=== PATIENT | male | born 1940 | race Hispanic/Latino ===

== ENCOUNTER 2023-09-03 17:50 | Emergency (ER) | payer OTHER ==
--- OUTSIDE RECORDS SUMMARY | 2023-09-03 17:53 | XMS REPORT | Clinical Summary ---
:1940 Author Organization [facility] MD [facility] Center Address [address] [place] [address] Care Team Providers Name Role Phone Royce Amaya MD Primary Care Provider Allergies No known active allergies Medications Medication Sig Dispensed Refills Start Date End Date Status losartan (COZAAR) 100 0 07/15/2019 Active mg tablet metoprolol tartrate 0 07/05/2019 Active (LOPRESSOR) 50 mg tablet olopatadine (PATADAY) 0 09/01/2019 Active 0.2% drop ophthalmic solution pravastatin 0 07/07/2019 Active (PRAVACHOL) 40 mg tablet omega-3 fatty Take 2 capsules 0 Active acids/fish oil (FISH (2 g) by mouth. OIL-OMEGA-3 FATTY ACIDS) 300-1,000 mg capsule cyanocobalamin Take 1 tablet 0 A ctive (VITAMIN B-12) 1000 (1,000 mcg) by mcg tablet mouth. calcium Take by mouth 2 0 Acti ve carbonate-vitamin D3 (two) times a 500 mg - 200 units day with meals. (1,250 mg calcium carbonate) tablet ascorbate Take 1 tablet by 0 Act bryan calcium-bioflavonoid mouth daily. (Rosario-C with Bioflavonoids) 1,000-200 mg tab tamsulosin (FLOMAX) TAKE ONE CAPSULE 180 capsule 3 12/03/2020 Active 0.4 mg 24 hr BY MOUTH TWICE A capsuleIndications: DAY Adenocarcinoma of prostate Additional Information Patient taking differently: 0.4 mg Nightly, Reason: Other, Informant: Self, Reported on 09/24/2022 hydrALAZINE (APRESOLINE) Take 1 tablet 0 Active 25 mg tablet (25 mg) by mouth 3 (three) times a day. dapagliflozin (Farxiga) Take 1 tablet by 0 Active 5 mg tab mouth daily. famotidine (PEPCID) 20 Take 1 tablet 0 Active mg tablet (20 mg) by mouth daily. tadalafil (CIALIS) 20 mg Take 1 tablet 30 tablet 3 Active tabletIndications: (20 mg) by mouth 022 Adenocarcinoma of daily as needed prostate for erectile dysfunction. fenofibrate 0 Disconti nued (Other nanocrystallized 019 022 ) (TRICOR) 145 mg tablet omeprazole (PriLOSEC) 40 0 09/24 Discontinued (OTC MG capsule 019 022 medicatio n) tadalafil (CIALIS) 20 mg Take 1 tablet 30 tablet 3 1 Discontinued tabletIndications: (20 mg) by mouth 021 022 (Reorder) Adenocarcinoma of daily as needed prostate for erectile dysfunction. amLODIPine-olmesartan TAKE ONE (1) 0 2 09/24 Discontinued (Other (SAMI) 5-40 mg per TABLET(S) BY 022 022 ) tablet MOUTH EVERY MORNING. 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 Staging: Clinical: Stage IIB (cT1 c, cN0, cM0, PSA: 13.2, Grade Group: 2) - Unsigned Encounters Date Type Department Care Team Description 03/25/2023 Telemedicine MD Kramer in [facility] [place] arcinoma of 11:15 AM CDT [facility] Radiation prostate (P rimary Dx) Oncology [address] [place] [id number] 09/24/2022 Telemedicine MD Kramer in [facility] [place] arcinoma of 9:30 AM OUTSIDE SALES ACCOUNT EXECUTIVE [facility] Radiation prostate Oncology [address] [place] [id number] after 09/03/2022 Immunizations Name Administration Dates Next Due Pfizer SARS-CoV-2 Vaccination (Purple 07/05/2021, 1, 11/10/2020 Cap) Medical History Medical History Date Comments Cancer Gastroesophageal reflux disease Hypertension Social History Tobacco Use Types Packs/Day Years Used Date Smoking Tobacco: Former Smokeless Tobacco: Never Sex and Gender Information Value Date Recorded Sex Assigned at Male 04/10/2020 9:21 AM CDT Gender Identity Male 04/10/2020 9:21 AM C DT Sexual Orientation Straight 04/10/2020 9:21 AM C DT Job Start Date Occupation Industry Not on file Not on file Not on file Obstetrics History Last Filed Vital Signs Not on file Plan of Treatment Date Type Department Care Team Description 09/21/2023 9:00 Lab MD [facility] [place] Kunal Amaya MD AM OUTSIDE SALES ACCOUNT EXECUTIVE - Diagnostic Laboratory [address] [place] [address] [address] [phone] (W ork) [place] [place] [address] 09/23/2023 1:00 [facility] OUTSIDE SALES ACCOUNT EXECUTIVE [facility] - Radiation [address] [place] [address] [address] [facility] [phone] (W ork) [address] [place] [address] Health Maintenance Due Date Last Done Comments COVID-19 Vaccination (06/18/2023 07/05/2021, , season) 11/10/2020 Results Not on fileafter 09/03/2022 Insurance Payer Benefit Plan / Subscriber ID Effective Phone Address T ype Group Dates UNITED UHC MEDICARE [id number] 2020-Prese [address] Medicare HEALTHCARE ADVANTAGE nt [place] [id number] Care Teams Vice Provost Relationship Specialty Start Date End Date Royce Amaya MD PCP - General Radiation Oncology 10/16/19 [address] [place] [address]
--- OUTSIDE RECORDS SUMMARY | 2023-09-03 17:53 | XMS REPORT | Continuity of Care Document ---
:1940 Author Organization [facility] t Address [address] [facility] [address] [place] [address] Care Team Providers Name Role Phone [phone] Primary Care Physician Unavailable SYSTEM, PROVIDER NOT IN Attending Clinician Unavailable CODIE BOX Attending Clinician Unavailable Codie Box MD Attending Clinician Payers Payer Name Policy Type Policy Number Effective Date Expiration Date S ource [employer] CHOICE [id number] 2018 MEDICARE PPO 00:00:00 Problems Condition Condition Condition Status Onset Resolution Last Treating Co mments Source Name Details Category Date Date Treatment Clinician Date Adenocarci Adenocarci Disease Active 2018-10 U nivers noma of noma of 1-04 ity of prostate prostate 00:00: [place] 00 MD [facility] Allergies, Adverse Reactions, Alerts This patient has no known allergies or adverse reactions. Social History Social Habit Start Date Stop Date Quantity Comments Source Sexual orientation 2020-04-10 Heterosexual Univ ersity of 09:21:36 (finding) [place] MD Williams Ruiz [facility] [place] History of tobacco Current smoker Un iversity of use [place] MD Williams Ruiz [facility] History of Social 2020-12-28 2020-12-28 Univers ity of function 00:00:00 00:00:00 [place] Williams [facility]le [place] Tobacco use and 2019-10-31 2019-10-31 Smokeless tobacco Un iversity of exposure 00:00:00 00:00:00 non-user [place] Williams [facility]le [place] Sex Ass[birth year] At [birth year] M Universit y of 00:00:00 00:00:00 [place] Williams [facility] [place] Smoking Status Start Date Stop Date Source Ex-smoker 2019-10-31 00:00:00 2019-10-31 00:00:00 Universi ty of [facility] Medications Ordered Filled Start Stop Current Ordering Indication Dosage Frequency Signature Comments Components Source Medication Medication Date Date Medication? Clinician (SIG) Name Name omega-3 Yes 2g Take 2 Univers fatty 6-08 capsules ity of acids/fish 09:47: (2 g) by Sudeep as oil (FISH 09 mouth. OIL-OMEGA-3 Andbrendan FATTY n ACIDS) Cancer 300-1,000 Center mg capsule cyanocobala Yes 1000ug Take 1 Un bubba min 6-08 tablet ity of (VITAMIN 09:47: (1,000 [place] B-12) 1000 09 mcg) by mcg tablet mouth. Natty [facility] calcium Yes Take by Univers carbonate-v 6-08 mouth 2 ity o f itamin D3 09:47: (two) [place] 500 mg - 09 times a MD 200 units day with Yobany o (1,250 mg meals. n calcium Cancer carbonate) Center tablet ascorbate Yes 1{tbl} Take 1 Univ ers calcium-bio 6-08 tablet by ity of flavonoid 09:47: mouth [place] (Rosario-C 09 daily. with Natty Bioflavonoi gabi ds) Cancer 1,000-200 Center mg tab hydrALAZINE Yes 25mg Take 1 Univ ers (APRESOLINE 6-08 tablet (25 it y of ) 25 mg 09:47: mg) by Renetta tablet 09 mouth 3 MD (three) Yobanyo times a n day. Cancer Center dapaglifloz Yes 1{tbl} Take 1 Un bubba in 6-08 tablet by ity of (Farxiga) 5 09:47: mouth [place] mg tab 09 daily. MD Natty [facility] [place] famotidine Yes 20mg Take 1 Unive rs (PEPCID) 20 6-08 tablet (20 it y of mg tablet 09:47: mg) by [place] 09 mouth daily. Natty [facility] tadalafil 2021-10 Yes Adenocarcin 20mg Take 1 Univers (CIALIS) 20 2-08 pedro of tablet (20 ity of mg tablet 00:00: prostate mg[place] 00 mouth daily as Anderso needed for n erectile Cancer dysfunctio Center n. amLODIPine- 2021- No TAKE ONE U nivers olmesartan 5-22 12-08 (1) ity of (SAMI) 5-40 00:00: 00:00 TABLET(S) [place] mg per 00 :00 BY MOUTH tablet EVERY Anderso MORNING. n Cancer Center tadalafil 2020-10- No Adenocarcin 20mg Take 1 Univers (CIALIS) 20 2-09 12-08 pedro of tablet (20 ity of mg tablet 00:00: 00:00 prostate mg) by [place] 00 :00 mouth MD daily as Anderso needed for n erectile Cancer dysfunctio [place] n. tamsulosin Yes Adenocarcin TAKE ONE Univers (FLOMAX) 2-16 pedro of CAPSULE BY ity of 0.4 mg 24 00:00: prostate MOUTH Sudeep as hr capsule 00 TWICE A MD DAY [facility] olopatadine 2018-10 Yes Univer s (PATADAY) 1-15 ity of 0.2% drop 00:00: [place] ophthalmic 00 solution [facility] omeprazole 2018-10- Univer s (PriLOSEC) 1-15 12-08 ity of 40 MG 00:00: 00:00 [place] capsule 00 :00 MD Luz [facility] losartan Yes Univers (COZAAR) 9-28 ity of 100 mg 00:00: [place] tablet [address] [facility] fenofibrate 2021- Unive rs nanocrystal 9 12-08 ity of lized 00:00: 00:00 [place] (TRICOR) 00 :00 145 mg Andbrendan tablet [facility] pravastatin Yes Univer s (PRAVACHOL) 9-20 ity of 40 mg 00:00: [place] tablet 00 [facility] Yes Univers tartrate 9-18 ity of (LOPRESSOR) 00:00: [place] 50 mg 00 tablet [facility] Immunizations Ordered Immunization Filled Immunization Date Status Commen ts Source Name Name Pfizer SARS-CoV-2 Unknown Completed Univer sity of Vaccination ([facility] Pfizer SARS-CoV-2 Unknown Completed Univer sity of Vaccination ([facility]) Cancer Center Pfizer SARS-CoV-2 Unknown Completed Univer sity of Vaccination ([facility]) Cancer [place] Procedures This patient has no known procedures. Plan of Care Planned Activity Planned Date Details Comments Source Future Scheduled 2023-08-07 COVID-19 Vaccination Uni [facility] Test 06:45:47 () MD Cholo rodriguez Cancer [code = COVID-19 Center Vaccination ()] Encounters Start End Encounter Admission Attending Care Care Encounter Source Date/Time Date/Time Type Type Clinicians Facility Department ID 2023-03-23 Outpatient SYSTEM, JOHN PAUL COKER [id number] 23:55:15 PROVIDER Yobany o gabi 2022-09-24 Outpatient SYSTEM, JOHN PAUL COKER [id number] 10:13:01 PROVIDER Yobany o gabi 2021-09-23 Outpatient SYSTEM, JOHN PAUL COKER [id number] 08:15:04 PROVIDER Yobany o gabi 2020-04-09 Outpatient SYSTEM, JOHN PAUL COKER [id number] 14:38:53 PROVIDER Yobany o gabi 2020-04-09 Outpatient BOXJOHN PAUL MDA [id number] 14:24:06 CODIE ashley 2023-03-25 2023-03-25 Namita Box, [id number] Univers 11:15:00 11:15:00 ne Codie [id number] ity of [id number] [place] .[id number] .Sanjay [facility] 2023-03-25 2023-03-25 Outpatient MIREYA BOX MDA MDA [id number] 09:50:52 10:18:22 CODIE ashley 2022-09-24 [facility] [id number] Univers 09:30:00 10:08:26 ne Codie [id number] ity of [id number] [place] .[id number] .Sanjay [facility] 2022-09-24 2022-09-24 Outpatient MIREYA BOX MDA MDA [id number] 09:22:41 10:08:26 CODIE ashley 2021-09-25 2021-09-25 Outpatient BOX, MDA MDA [id number] 09:14:00 10:18:10 CODIE ashley 2021-07-05 2021-07-05 Outpatient MDA MDA [id number] 11:01:29 11:01:29 Yobany ashley 2020-10-08 2020-10-08 Outpatient BOX, MDA MDA [id number] 00:00:00 00:00:00 CODIE ashley 2020-10-08 2020-10-08 [facility], MDA MDA [id number] 00:00:00 00:00:00 CODIE ashley 2020-04-10 2020-04-10 Outpatient BOX, MDA MDA [id number] 10:32:11 11:15:09 CODIE ashley Results This patient has no known results.
--- NOTE | 2023-09-03 18:31 | RAD REPORT ---
EXAM DESCRIPTION: RAD - Chest Single View - 09/03/2023 6:25 pm CLINICAL HISTORY: COUGH Chest pain. COMPARISON: No comparisons FINDINGS: Portable technique limits examination quality. The lungs are grossly clear. The heart is normal in size. Mildly tortuous thoracic aorta. No displace d fractures. IMPRESSION: No acute intrathoracic process suspected.
[2023-09-03] MEDS ORDERED: NA CHLORIDE 0.9% 500 ML ONE (18:35)
[2023-09-03 19:04] LABS: Protime INR 0.98
[2023-09-03 19:05] LABS: Absolute Lymphocytes (CBC) 1.5 K/uL (0.7-4.9); Hematocrit 42.3 % (39.6-49.0); Lymphocytes % 31.8 % (15.3-44.8); MCV 85.1 fL (80-100); MPV 8.7 fL (7.6-11.3); Platelets 171 thou/uL (152-406); RBC Red Blood Cell Count 4.97 M/uL (4.33-5.43)
[2023-09-03 19:23] LABS: Albumin 3.6 g/dL (3.4-5.0); Bilirubin Direct 0.2 mg/dL (0-0.2); Bilirubin Indirect, Calculated 0.6 mg/dL (0.2-0.8); Bilirubin Total 0.8 mg/dL (0.2-1.0); Magnesium 2.3 mg/dL (1.6-2.4); Protein, Total 7.1 g/dL (6.4-8.2)
--- NOTE | 2023-09-03 19:29 | EDPHYS ---
Physician Documentation [facility] Name: Richard Condon Age: 83 yrs Sex: Male : 1940 Arrival Date: 09/03/2023 Time: 17:50 Bed 18 Private MD: ED Physician Ion Kramer HPI: 09/03 18:16 This 83 yrs old Male presents to ER via Ambulatory with complaints of High chaparrita Blood Pressure, Low Heart Rate, Dizziness. 18:16 The patient has elevated blood pressure and discovered this at home, with a home chaparrita device. Onset: The symptoms/episode began/occurred 1 day(s) ago. Modifying factors: The symptoms are aggravated by activity, The symptoms are alleviated by remaining still. Associated signs and symptoms: The patient has no apparent associated signs or symptoms. Severity of symptoms: At its worst the blood pressure was moderate, earlier today, in the emergency department the blood pressure is unchanged. The patient has experienced similar episodes in the past, several times. Historical: - Allergies: 18:01 No Known Allergies; nj1 - Home Meds: 19:49 Metoprolol Tartrate Oral [Active]; Spironolactone Oral [Active]; olmesartan oral jb4 [Active]; - PMHx: 18:01 Hypertensive disorder; Diabetes mellitus; nj1 - Immunization history:: Client reports receiving the 2nd dose of the Covid vaccine. - Social history:: Smoking status: Patient denies any tobacco usage or history of. ROS: 18:18 Constitutional: Negative for fever, chills, and weight loss, Eyes: Negative for injury, chaparrita pain, redness, and discharge, ENT: Negative for injury, pain, and discharge, Neck: Negative for injury, pain, and swelling, Respiratory: Negative for shortness of breath, cough, wheezing, and pleuritic chest pain, Abdomen/GI: Negative for abdominal pain, nausea, vomiting, diarrhea, and constipation, Back: Negative for injury and pain, : Negative for injury, bleeding, discharge, and swelling, MS/Extremity: Negative for injury and deformity, Skin: Negative for injury, rash, and discoloration, Neuro: Negative for headache, weakness, numbness, tingling, and seizure, 18:18 Cardiovascular: Positive for palpitations, Exam: 18:18 Constitutional: This is a well developed, well nourished patient who is awake, alert, chaparrita and in no acute distress. Head/Face: Normocephalic, atraumatic. Eyes: Pupils equal round and reactive to light, extra-ocular motions intact. Lids and lashes normal. Conjunctiva and sclera are non-icteric and not injected. Cornea within normal limits. Periorbital areas with no swelling, redness, or edema. ENT: Nares patent. No nasal discharge, no septal abnormalities noted. Tympanic membranes are normal and external auditory canals are clear. Oropharynx with no redness, swelling, or masses, exudates, or evidence of obstruction, uvula midline. Mucous membranes moist. Neck: Trachea midline, no thyromegaly or masses palpated, and no cervical lymphadenopathy. Supple, full range of motion without nuchal rigidity, or vertebral point tenderness. No Meningismus. Chest/axilla: Normal chest wall appearance and motion. Nontender with no deformity. No lesions are appreciated. Cardiovascular: Regular rate and rhythm with a normal S1 and S2. No gallops, murmurs, or rubs. Normal PMI, no JVD. No pulse deficits. Respiratory: Lungs have equal breath sounds bilaterally, clear to auscultation and percussion. No rales, rhonchi or wheezes noted. No increased work of breathing, no retractions or nasal flaring. Abdomen/GI: Soft, non-tender, with normal bowel sounds. No distension or tympany. No guarding or rebound. No evidence of tenderness throughout. Back: No spinal tenderness. No costovertebral tenderness. Full range of motion. Male : Normal genitalia with no discharge or lesions. Skin: Warm, dry with normal turgor. Normal color with no rashes, no lesions, and no evidence of cellulitis. MS/ Extremity: Pulses equal, no cyanosis. Neurovascular intact. Full, normal range of motion. Neuro: Awake and alert, GCS 15, oriented to person, place, time, and situation. Cranial nerves II-XII grossly intact. Motor strength 5/5 in all extremities. Sensory grossly intact. Cerebellar exam normal. Normal gait. Psych: Awake, alert, with orientation to person, place and time. Behavior, mood, and affect are within normal limits. 18:18 Cardiovascular: Rate: bradycardic, actual rate is 54 bpm, Rhythm: regular, Pulses: Pulses are 4+ in bilateral radial, brachial, femoral, popliteal, posterior tibial and and dorsalis pedis arteries.. Heart sounds: normal, Edema: is not appreciated, JVD: is not appreciated, 19:24 ECG was reviewed by the Attending Physician. [facility] Vital Signs: 17:55 BP 179 / 81; Pulse 53; Resp 18; Temp 97.7(O); Pulse Ox 100% on R/A; Weight 65.32 kg; nj1 Height 5 ft. 6 in. ; Pain 4/10; 18:45 BP 160 / 66; Pulse 51; Resp 18; Pulse Ox 99% on R/A; db 19:28 BP 152 / 65; Pulse 50; Resp 16; Pulse Ox 99% on R/A; jb4 19:29 BP 156 / 71 LA Supine (auto/reg); Pulse 48; Resp 16; Pulse Ox 99% on R/A; jb4 19:31 BP 167 / 72 LA Sitting (auto/reg); Pulse 51; Resp 16 S; Pulse Ox 99% on R/A; jb4 19:33 BP 179 / 73 LA Standing (auto/reg); Pulse 52; Resp 16 S; Pulse Ox 99% on R/A; jb4 17:55 Body Mass Index 23.24 (65.32 kg, 167.64 cm) nj1 17:55 Pain Scale: Adult nj1 MDM: 18:04 Patient medically screened. [facility] 18:19 Differential diagnosis: hypertensive crisis, Malignant HTN. Data reviewed: vital signs, [facility] nurses notes, lab test result(s), EKG, radiologic studies, plain films. Consideration of Admission/Observation Escalation of care including admission/observation considered. I considered the following discharge prescriptions or medication management in the emergency department Medications were administered in the Emergency Department. See MAR. Independent interpretation of the following test(s) in the Emergency Department EKG: See my EKG interpretation above. Test considered but Not performed: CT: NO CT HEAD. Care significantly affected by the following chronic conditions: Diabetes, Hypertension. Counseling: I had a detailed discussion with the patient and/or guardian regarding the historical points, exam findings, and any diagnostic results supporting the discharge/admit diagnosis, the presence of at least one elevated blood pressure reading (>120/80) during this emergency department visit, lab results, radiology results, the need for outpatient follow up, for definitive care, a captain fire prevention bureau, a family practitioner. 09/03 18:07 Order name: Basic Metabolic Panel; Complete Time: 19:26 [facility] 09/03 18:07 Order name: CBC with Diff; Complete Time: 19:26 [facility] 09/03 18:07 Order name: LFT's; Complete Time: 19:26 [facility] 09/03 18:07 Order name: Magnesium; Complete Time: 19:26 [facility] 09/03 18:07 Order name: NT PRO-BNP; Complete Time: 19:26 [facility] 09/03 18:07 Order name: PT-INR; Complete Time: 19:26 [facility] 09/03 18:07 Order name: Troponin HS; Complete Time: 19:26 [facility] 09/03 18:07 Order name: Lipase; Complete Time: 19:26 [facility] 09/03 18:07 Order name: XRAY Chest (1 view); Complete Time: 19:26 [facility] 09/03 18:07 Order name: EKG; Complete Time: 18:07 [facility] 09/03 18:07 Order name: Cardiac monitoring; Complete Time: 19:16 [facility] 09/03 18:07 Order name: EKG - Nurse/Tech; Complete Time: 19:16 [facility] 09/03 18:07 Order name: IV Saline Lock; Complete Time: 19:16 [facility] 09/03 18:07 Order name: Labs collected and sent; Complete Time: 19:16 [facility] 09/03 18:07 Order name: O2 Per Protocol; Complete Time: 19:16 [facility] 09/03 18:07 Order name: O2 Sat Monitoring; Complete Time: 19:16 [facility] 09/03 19:28 Order name: Orthostatics; Complete Time: 19:39 [facility] EC:24 Rate is 52 beats/min. Rhythm is regular. QRS [place] is Normal. ME interval is normal. QRS chaparrita interval is normal. QT interval is normal. No Q waves. T waves are Normal. No ST changes noted. Clinical impression: Sinus bradycardia. Interpreted by me. Reviewed by me. Administered Medications: 18:51 Drug: NS 0.9% IV 500 ml IV at bolus once Route: IV; Rate: bolus; Site: right db antecubital; 19:48 Drug: Norvasc PO 5 mg PO once Route: PO; jb4 Disposition Summary: 09/03/23 19:28 Discharge Ordered Notes: Location: Home chaparrita Problem: new chaparrita Symptoms: have improved chaparrita Condition: Stable chaparrita Diagnosis - Essential (primary) hypertension chaparrita - Bradycardia, unspecified chaparrita Followup: chaparrita - With: Private Physician - When: 1 - 2 days - Reason: Recheck today's complaints, Continuance of care, Re-evaluation by your physician Followup: chaparrita - With: Mark Vega MD - When: 2 - 3 days - Reason: Recheck today's complaints, Re-evaluation by your physician Discharge Instructions: - Discharge Summary Sheet chaparrita - Bradycardia, Adult chaparrita - Hypertension, Adult chaparrita - Hypertension, Adult, [id number] chaparrita - Diabetes Mellitus and Nutrition, Adult chaparrita - How to Take Your Blood Pressure, [id number] chaparrita - Aspirin and Your Heart chaparrita - Managing Your Hypertension chaparrita Forms: - Medication Reconciliation Form chaparrita - Thank You Letter chaparrita - Antibiotic Education chaparrita - Prescription Opioid Use chaparrita - Patient Portal Instructions chaparrita - Leadership Thank You Letter chaparrita Signatures: Dispatcher [employer] Ion Riley MD MD cha Bryson, James, RN RN jb4 Zoe Jordan RN RN db Bella Caamrena RN RN nj1
--- NOTE | 2023-09-03 19:29 | ER ---
Nurse's Notes [facility] Name: Richard Condon Age: 83 yrs Sex: Male : 1940 Arrival Date: 09/03/2023 Time: 17:50 Bed 18 Private MD: Diagnosis: Essential (primary) hypertension;Bradycardia, unspecified Presentation: 09/03 17:55 Chief complaint: Patient states: high blood pressure for quite a while while. nj1 Lightheaded for about a month, seeing PCP to adjust bp medicine since. Today he received a device to monitor his blood pressure and glucose, was signed on by PCP. Checked his blood pressure when he received the device and later on received a call from the [employer]" instructing him to come to ED for further evaluation and treatment. Little bit of a pain in the back of his neck along with stomach pain that has been going on for a quite a while on and off, has been evaluated by PCP for these problems before. Coronavirus screen: Vaccine status: Patient reports receiving the 2nd dose of the covid vaccine. Ebola Screen: Patient denies travel to an Ebola-affected area in the 21 days before illness onset. Initial Sepsis Screen: Does the patient meet any 2 criteria? No. Patient's initial sepsis screen is negative. Does the patient have a suspected source of infection? No. Patient's initial sepsis screen is negative. Risk Assessment: Do you want to hurt yourself or someone else? Patient reports no desire to harm self or others. Onset of symptoms was 2022. 17:55 Method Of Arrival: Ambulatory [facility] 17:55 Acuity: BETZY 3 nj1 Historical: - Allergies: 18:01 No Known Allergies; nj1 - Home Meds: 19:49 Metoprolol Tartrate Oral [Active]; Spironolactone Oral [Active]; olmesartan oral jb4 [Active]; - PMHx: 18:01 Hypertensive disorder; Diabetes mellitus; nj1 - Immunization history:: Client reports receiving the 2nd dose of the Covid vaccine. - Social history:: Smoking status: Patient denies any tobacco usage or history of. Screenin:17 [facility] ED Fall Risk Assessment (Adult) History of falling in the last 3 months, db including since admission No falls in past 3 months (0 pts) Score/Fall Risk Level 0 - 2 = Low Risk Oriented to surroundings, Maintained a safe environment. Abuse screen: Denies threats or abuse. Denies injuries from another. Nutritional screening: No deficits noted. Tuberculosis screening: No symptoms or risk factors identified. Assessment: 18:35 Reassessment: Patient appears in no apparent distress at this time. Patient and/or db family updated on plan of care and expected duration. Pain level reassessed. Patient is alert, oriented x 3, equal unlabored respirations, skin warm/dry/pink. General: Appears in no apparent distress. comfortable. Pain: Denies pain. Neuro: Level of Consciousness is awake, alert, obeys commands, Oriented to person, place, time, situation, Moves all extremities. Full function Speech is normal. 19:28 Reassessment: Patient appears in no apparent distress at this time. Patient and/or jb4 family updated on plan of care and expected duration. Pain level reassessed. Patient is alert, oriented x 3, equal unlabored respirations, skin warm/dry/pink. Vital Signs: 17:55 BP 179 / 81; Pulse 53; Resp 18; Temp 97.7(O); Pulse Ox 100% on R/A; Weight 65.32 kg; nj1 Height 5 ft. 6 in. ; Pain 4/10; 18:45 BP 160 / 66; Pulse 51; Resp 18; Pulse Ox 99% on R/A; db 19:28 BP 152 / 65; Pulse 50; Resp 16; Pulse Ox 99% on R/A; jb4 19:29 BP 156 / 71 LA Supine (auto/reg); Pulse 48; Resp 16; Pulse Ox 99% on R/A; jb4 19:31 BP 167 / 72 LA Sitting (auto/reg); Pulse 51; Resp 16 S; Pulse Ox 99% on R/A; jb4 19:33 BP 179 / 73 LA Standing (auto/reg); Pulse 52; Resp 16 S; Pulse Ox 99% on R/A; jb4 17:55 Body Mass Index 23.24 (65.32 kg, 167.64 cm) nj1 17:55 Pain Scale: Adult [facility] ED Course: 17:51 Patient arrived in ED. rg4 18:01 Triage completed. nj1 18:02 Arm band placed on right wrist. nj1 18:04 Ion Kramer MD is Attending Physician. chaparrita 18:27 XRAY Chest (1 view) In Process Unspecified. EDMS 18:48 Inserted saline lock: 22 gauge in right antecubital area, using aseptic technique. db Blood collected. 18:51 Zoe Jordan, RN is Primary Nurse. 19:19 Patient has correct armband on for positive identification. Bed in low position. Call db light in reach. Side rails up X 1. Pulse ox on. NIBP on. Warm blanket given. 19:28 Mark Vega MD is Referral Physician. [facility] 20:03 No provider procedures requiring assistance completed. IV discontinued, intact, jb4 bleeding controlled, No redness/swelling at site. Pressure dressing applied. Administered Medications: 18:51 Drug: NS 0.9% IV 500 ml IV at bolus once Route: IV; Rate: bolus; Site: right db antecubital; 19:48 Drug: Norvasc PO 5 mg PO once Route: PO; jb4 Outcome: 19:28 Discharge ordered by . [facility] 20:03 Discharged to home ambulatory, with family, jb4 20:03 Condition: stable 20:03 Discharge instructions given to patient, Instructed on discharge instructions, follow up and referral plans. Demonstrated understanding of instructions, follow-up care, 20:04 Patient left the ED. jb4 Signatures: Dispatcher [employer] EDND Ion Kramer MD MD cha Garcia, Rubi rg4 Toro Cha RN RN jb4 Zoe Jordan, RN RN db Bella Camarena, ALTAGRACIA RN nj1 Corrections: (The following items were deleted from the chart) 18:03 17:55 Chief complaint: Patient states: high blood pressure for quite a while while. nj1 Today he received a device to monitor his blood pressure and glucose, was signed on by PCP. Checked his blood pressure when he received the device and later on received a call from the [employer]" instructing him to come to ED for further evaluation and treatment. Little bit of a pain in the back of his neck along with stomach pain that has been going on for a quite a while on and off, has been evaluated by PCP for these problems before. nj1
[2023-09-03] MEDS ORDERED: AMLODIPINE 5 MG TAB ONE (19:57)
[2023-09-03 20:17] VITALS: TEMP 97.7
[2023-09-03 20:19] VITALS: O2SAT 99
[2023-09-03 20:24] VITALS: BP 179/73
--- NOTE | 2023-09-08 17:08 | EKG ---
Test Date: 2023-09-03 Test Time: 19:12:42 Transit Bus Driver: JENSEN MEASUREMENT RESULTS: Intervals: Rate: 52 MN: 170 QRSD: 76 QT: 482 QTc: 448 [place]: P: 16 MN: 170 QRS: 40 T: 41 INTERPRETIVE STATEMENTS: Sinus bradycardia ST abnormality, possible digitalis effect Abnormal ECG No previous ECG available for comparison Electronically Signed On 09-08-23 16:55:46 INTERNATIONAL SPECIALIST by Mark Vega
== END 2023-09-03 20:04 | disposition home or self-care (01) ==
LOC: ER 17:50
DX: I10 Essential (primary) hypertension (principal); R00.1 Bradycardia, unspecified; E11.9 Type 2 diabetes mellitus without complications
CPT/HCPCS: 93005; 85025; 80048; 36415; 83735; 85610; 80076; 84484; 83690; 83880; 71045; 99284; J7040

== ENCOUNTER 2024-03-19 14:22 | Observation (INO) | payer OTHER ==
--- OUTSIDE RECORDS SUMMARY | 2024-03-19 14:27 | XMS REPORT | Clinical Summary ---
Author Name Unknown Organization [facility] Address [address] [place] [address] Care Team Providers Care [employer] Name Role Phone Royce Amaya MD Primary Care Provider [phone] Allergies No known active allergies Medications Medication Sig Dispensed Refills Start Date End Date Status metoprolol tartrate (LOPRESSOR) 50 mg tablet Take 0.5 tablets (25 mg) by mouth twice daily. 9 Active pravastatin (PRAVACHOL) 40 mg tablet 9 Active cyanocobalamin (VITAMIN B-12) 1000 mcg tablet Take 1 tablet (1,000 mcg) by mouth. Active calcium carbonate-vitamin D3 500 mg - 200 units (1,250 mg calcium carbonate) tablet Take by mouth 2 (two) times a day with meals. Active ascorbate calcium-bioflavonoid (Rosario-C with Bioflavonoids) 1,000-200 mg tab Take 1 tablet by mouth daily. Active famotidine (PEPCID) 20 mg tablet Take 1 tablet (20 mg) by mouth daily. Active tadalafil (CIALIS) 20 mg tabletIndications:Shy nocarcinoma of prostate Take 1 tablet (20 mg) by mouth daily as needed for erectile dysfunction. 30 tablet 3 2 Active latanoprost (XALATAN) 0.005% ophthalmic solution Administer 1 drop to the right eye at bedtime. 3 Active glipiZIDE (GLUCOTROL) 5 mg tablet Take 1 tablet (5 mg) by mouth every morning before breakfast. 3 Active olmesartan (BENICAR) 40 mg tablet Take 1 tablet (40 mg) by mouth daily. 3 Active dorzolamide-timolol (COSOPT) 2%-0.5% ophthalmic solution Administer 1 drop to both eyes twice daily. 3 Active fenofibrate nanocrystallized (TRICOR) 145 mg tablet Take 1 tablet (145 mg) by mouth daily. Active spironolactone (ALDACTONE) 50 mg tablet Take 1 tablet (50 mg) by mouth daily. 3 Active omeprazole (PriLOSEC) 20 mg capsule Take 1 capsule (20 mg) by mouth every morning before breakfast. 3 Active tamsulosin (FLOMAX) 0.4 mg 24 hr capsuleIndications:Ad enocarcinoma of prostate Take 1 capsule (0.4 mg) by mouth daily. 90 capsule 2 3 Active losartan (COZAAR) 100 mg tablet 9 09/23/20 23 Discontinue d(Discontin ued by another clinician) olopatadine (PATADAY) 0.2% drop ophthalmic solution 9 09/23/20 23 Discontinue d(Discontin ued by another clinician) omega-3 fatty acids/fish oil (FISH OIL-OMEGA-3 FATTY ACIDS) 300-1,000 mg capsule Take 2 capsules (2 g) by mouth. 09/23/20 23 Discontinue d(OTC medication) tamsulosin (FLOMAX) 0.4 mg 24 hr capsuleIndications:Ad enocarcinoma of prostate TAKE ONE CAPSULE BY MOUTH TWICE A DAY 180 capsule 3 1 09/23/20 23 Discontinue d(Reorder) hydrALAZINE (APRESOLINE) 25 mg tablet Take 1 tablet (25 mg) by mouth 3 (three) times a day. 09/23/20 Discontinue d(Discontin ued by another clinician) dapagliflozin (Farxiga) 5 mg tab Take 1 tablet by mouth daily. 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 Staging:Clinical:Stage IIB(cT1c, cN0, cM0, PSA: 13.2, Grade Group: 2) - Unsigned Encounters Date Type Department Care Team Description 09/23/2023 1:00 PM PARQUETRY LAYER Telemedicine MD [facility] [place] - Radiation Oncology [address] [place] [address] Karen Montoya PA Crabtrey, Patricia, APRN Adenocarcinoma of prostate (Primary Dx) 03/25/2023 11:15 AM CDT Telemedicine MD [facility] [place] - Radiation Oncology [address] [address] Royce Amaya MD Adenocarcinoma of prostate (Primary Dx) after 03/20/2023 Immunizations Name Administration Dates Next Due Pfizer SARS-CoV-2 Vaccination (Purple Cap) 07/05,12/01/2020,11/10/2020 Medical History Medical History Date Comments Cancer Gastroesophageal reflux disease Hypertension Social History Tobacco Use Types Packs/Day Years Used Date Smoking Tobacco: Former Smokeless Tobacco: Never Sex and Gender Information Value Date Recorded Sex Assigned at Male 04/10/2020 9:21 AM CDT Gender Identity Male 04/10/2020 9:21 AM CDT Sexual Orientation Straight 04/10/2020 9: 21 AM CDT Job Start Date Occupation Industry Not on file Not on file Not on file Obstetrics History Plan of Treatment Upcoming Encounters Date Type Department Care Team (Late st Contact Info) Description 03/30/2024 1:00 PM CDT Follow-Up MD [facility] in [place] - Radiation Oncology [address] [address] Breann Douglas APRN [address] [place] [address] Health Maintenance Due Date Last Done Comments COVID-19 Vaccine (2022-11 4 season) 2023 07/05/2021, 12/01/2020, 11/10/2020 Influenza Vaccine 06/18/2024 Care Teams [employer] Relationship Specialty Start Date End Date Royce Amaya MD [address] [place] [address] PCP - General Radiation Oncology 08/02/19
[2024-03-19 15:38] LABS: Absolute Lymphocytes (CBC) 0.7 K/uL (0.7-4.9); Absolute Monocytes 0.2 K/uL (0.1-1.3); Basophils % 0.2 % (0-1.3); Eosinophils % 0.3 % (0-4.4); Hematocrit 38.5 % (39.6-49.0); Hemoglobin 13.1 g/dL (13.6-17.9); Lymphocytes % 9.9 % (15.3-44.8); MCH 29.6 pg (27.0-35.0); MCHC 34.1 g/dL (32.0-36.0); MCV 86.7 fL (80-100); Monocytes % 2.5 % (3.3-12.3); Neutrophils % 87.1 % (41.7-73.7); Platelets 167 thou/uL (152-406); RBC Red Blood Cell Count 4.44 M/uL (4.33-5.43); Red Cell Distribution Width 13.4 % (12.1-15.2)
[2024-03-19] MEDS ORDERED: NA CHLORIDE 0.9% 1,000 ML ONE (15:44)
[2024-03-19] MEDS ORDERED: ONDANSETRON 4 MG/2 ML VIAL ONE (15:44)
--- NOTE | 2024-03-19 15:58 | RAD REPORT ---
EXAM DESCRIPTION: CT - Ct Stroke Brain Wo Cont - 03/19/2024 3:45 pm CLINICAL HISTORY: Dizziness COMPARISON: none TECHNIQUE: Computed axial tomography of the head was obtained. All CT scans are performed using dose optimization technique as appropriate and may include automated exposure control or mA/KV adjustment according to patient size. FINDINGS: An intracranial bleed is not seen . The ventricles are normal in caliber. No extra-axial fluid collection is noted. No significant hypodensity within the brain seen Fluid within the sinuses/ mastoids is not seen. IMPRESSION: No acute intracranial abnormality is seen. If patient's symptoms persist MRI of the bra in would be recommended Mari Calderon of the emergency room was notified at 3:52 p.m. March 19, 2024
[2024-03-19 15:59] LABS: PTT, Activated Partial Thromb 28.6 SECONDS (24.3-36.9)
--- NOTE | 2024-03-19 15:59 | RAD REPORT ---
EXAM DESCRIPTION: Cora Single View03/19/2024 3:39 pm CLINICAL HISTORY: Dizziness and vomiting COMPARISON: 2022 FINDINGS: The lungs appear clear of acute infiltrate. The heart is normal size IMPRESSION: No acute abnormalities displayed
[2024-03-19 16:00] LABS: ALT/SGPT 23 U/L (16-61); AST/SGOT 14 U/L (15-37); Albumin 3.5 g/dL (3.4-5.0); Alkaline Phosphatase 33 U/L (45-117); Anion Gap 7.9 mEq/L (5.0-15.0); BUN Blood Urea Nitrogen 19 mg/dL (7-18); Bicarbonate 25 mEq/L (21-32); Bilirubin Total 0.8 mg/dL (0.2-1.0); Globulin 3.6 g/dL (2.3-3.5); Glomerular Filtration Rate 58 ml/min (=/>90); Glucose Level 183 mg/dL (74-106); Potassium 3.9 mEq/L (3.5-5.1); Protein, Total 7.1 g/dL (6.4-8.2); Sodium Level 137 mEq/L (136-145); Troponin High Sensitivity 5.8 pg/mL (<58.9)
[2024-03-19 16:03] LABS: Bilirubin Direct < 0.2 mg/dL (0-0.2); Bilirubin Indirect, Calculated 0.6 mg/dL (0.2-0.8)
--- NOTE | 2024-03-19 16:48 | RAD REPORT ---
EXAM DESCRIPTION: Talya Angio03/19/2024 4:33 pm CLINICAL HISTORY: Dizziness COMPARISON: None TECHNIQUE: 100 cc Isovue [address] angiogram of the neck was obtained. 3D MIPS reconstruction performed. All CT scans are performed using dose optimization technique as appropriate and may include automated exposure control or mA/KV adjustment according to patient size. FINDINGS: Mild plaque within the aortic arch. Right vessels appear unremarkable Mild plaque within the common carotid, internal carotid and external carotid arteries bilaterally Vertebral arteries unremarkable No dissection is seen. No high-grade stenosis Nascet crieria Mild stenosis 0 to 49 % Moderate stenosis 50-69% Severe stenosis 70-99% IMPRESSION: No significant abnormality is displayed
--- NOTE | 2024-03-19 16:48 | RAD REPORT ---
EXAM DESCRIPTION: CTHead angio03/19/2024 4:33 pm CLINICAL HISTORY: Dizziness COMPARISON: none TECHNIQUE: 100 cc Isovue [address] angiogram of the head was obtained. 3D MIPS reconstruction performed. All CT scans are performed using dose optimization technique as appropriate and may include automated exposure control or mA/KV adjustment according to patient size. FINDINGS: The basilar, anterior cerebral, middle cerebral and posterior cerebral arteries do not dem onstrate a significant stenosis Mild calcified plaque distal internal carotid arteries An aneurysm is not seen No large vessel occlusion IMPRESSION: No significant abnormality is displayed
--- NOTE | 2024-03-19 17:06 | ER ---
Nurse's Notes [facility] Name: Richard Condon Age: 83 yrs Sex: Male : 1940 Arrival Date: 03/19/2024 Time: 14:22 Bed 18 Private MD: Diagnosis: Dizziness and giddiness;CVA rule out Presentation: 03/19 14:50 Chief complaint: N/V and dizziness since this morning. Not tolerating fluids. VAN hb Negative. Coronavirus screen: At this time, the client does not indicate any symptoms associated with coronavirus-19. Ebola Screen: No symptoms or risks identified at this time. Initial Sepsis Screen: Does the patient meet any 2 criteria? No. Patient's initial sepsis screen is negative. Does the patient have a suspected source of infection? No. Patient's initial sepsis screen is negative. Risk Assessment: Do you want to hurt yourself or someone else? Patient reports no desire to harm self or others. Onset of symptoms was March 19, 2024. 14:50 Method Of Arrival: Ambulatory hb 14:50 Acuity: BETZY 3 hb Triage Assessment: 14:54 General: Appears in no apparent distress. Behavior is calm, cooperative. Pain: Denies hb pain. Neuro: Level of Consciousness is awake, alert, obeys commands, Oriented to person, place, time, situation. Cardiovascular: Patient's skin is warm and dry. Respiratory: Respiratory effort is even, unlabored, Respiratory pattern is regular, symmetrical. GI: Reports nausea, vomiting. Historical: - Allergies: 14:51 No Known Allergies; hb - Home Meds: 14:51 metoprolol tartrate 25 mg oral tablet daily [Active]; olmesartan 20 mg oral tablet hb daily [Active]; spironolactone 25 mg oral tablet daily [Active]; pravastatin 40 mg oral tablet daily [Active]; tamsulosin 0.4 mg oral capsule daily [Active]; isosorbide mononitrate 30 mg Oral Tablet, Extended Release 24 hr daily [Active]; omeprazole 20 mg Oral capsule,delayed release (e.c.) 2 times per day [Active]; glipizide 5 mg Oral Tablet, Extended Release 24 hr daily [Active]; aspirin 81 mg Oral tablet,chewable daily [Active]; - PMHx: 14:51 diabetes mellitus; Hypertensive disorder; hb - Immunization history:: Adult Immunizations up to date. - Infectious Disease History:: Denies. - Social history:: Smoking status: Patient denies any tobacco usage or history of. Screenin:00 [facility] ED Fall Risk Assessment (Adult) History of falling in the last 3 months, db including since admission No falls in past 3 months (0 pts) Confusion or Disorientation No (0 pts) Intoxicated or Sedated No (0 pts) Impaired Gait No (0 pts) Mobility Assist Device Used No (0 pt) Altered Elimination No (0 pt) Score/Fall Risk Level 0 - 2 = Low Risk Oriented to surroundings, Maintained a safe environment. Abuse screen: Denies threats or abuse. Denies injuries from another. Nutritional screening: No deficits noted. Tuberculosis screening: No symptoms or risk factors identified. Harbert Swallow Protocol Brief Cognitive Screen What is your name? Normal, Where are you right now? Normal, What year is it? Normal. Oral Mechanism Examination Facial Symmetry: Normal, Motion: Normal, Lip Closure: Normal, Oral Mechanism Result: Normal. 3 oz Water Swallow Challenge: Pt able to drink all water without stopping, coughing, choking or throat clearing: Yes Result: PASS. Assessment: 05:30 Neuro: Pupils are Pupil Size: LEFT 4 MM AND RIGHT 2 MM. db 14:55 Reassessment: Patient and/or family updated on plan of care and expected duration. Pain ll1 level reassessed. 15:00 GI: Abdomen is flat, Reports nausea, vomiting. db 15:00 Reassessment: Patient appears in no apparent distress at this time. Patient and/or db family updated on plan of care and expected duration. Pain level reassessed. Patient is alert, oriented x 3, equal unlabored respirations, skin warm/dry/pink. Neuro: Level of Consciousness is awake, alert, obeys commands, Oriented to person, place, time, situation, Speech is normal, Facial symmetry appears normal. Respiratory: Airway is patent Respiratory effort is even, unlabored, Respiratory pattern is regular, symmetrical. 15:36 Reassessment: Patient appears in no apparent distress at this time. Patient and/or db family updated on plan of care and expected duration. Pain level reassessed. Patient is alert, oriented x 3, equal unlabored respirations, skin warm/dry/pink. CODE STROKE CALLED FOR PT. 16:30 Reassessment: Patient appears in no apparent distress at this time. No changes from db previously documented assessment. Patient and/or family updated on plan of care and expected duration. Pain level reassessed. Patient is alert, oriented x 3, equal unlabored respirations, skin warm/dry/pink. General: Appears in no apparent distress. comfortable. 17:40 Reassessment: Patient appears in no apparent distress at this time. Patient and/or db family updated on plan of care and expected duration. Pain level reassessed. Patient is alert, oriented x 3, equal unlabored respirations, skin warm/dry/pink. 17:46 Reassessment: PT TALKING ON THE PHONE. db 18:30 Reassessment: Patient appears in no apparent distress at this time. Patient and/or db family updated on plan of care and expected duration. Pain level reassessed. Patient is alert, oriented x 3, equal unlabored respirations, skin warm/dry/pink. General: Appears in no apparent distress. comfortable, Behavior is calm, cooperative. 19:15 General: Appears in no apparent distress. comfortable, Behavior is calm, cooperative. jw7 Pain: Denies pain. Neuro: Level of Consciousness is awake, alert, obeys commands, Oriented to person, place, time, situation. Cardiovascular: Capillary refill < 3 seconds Patient's skin is warm and dry. Respiratory: Airway is patent Trachea midline Respiratory effort is even, unlabored, Respiratory pattern is regular, symmetrical. GI: Abdomen is flat, non-distended, Bowel sounds present X 4 quads. Abd is soft and non tender. : No deficits noted. No signs and/or symptoms were reported regarding the genitourinary system. EENT: No deficits noted. No signs and/or symptoms were reported regarding the EENT system. Derm: Skin is intact, is healthy with good turgor, Skin is dry, Skin is normal, Skin temperature is warm. Musculoskeletal: Circulation, motion, and sensation intact. Range of motion: intact in all extremities. 20:00 Reassessment: Patient appears in no apparent distress at this time. No changes from jw7 previously documented assessment. Patient and/or family updated on plan of care and expected duration. Pain level reassessed. Patient is alert, oriented x 3, equal unlabored respirations, skin warm/dry/pink. 20:45 Reassessment: Patient appears in no apparent distress at this time. No changes from jw7 previously documented assessment. Patient and/or family updated on plan of care and expected duration. Pain level reassessed. Patient is alert, oriented x 3, equal unlabored respirations, skin warm/dry/pink. Vital Signs: 14:50 BP 161 / 66; Pulse 72; Resp 14; Temp 97.9(TE); Pulse Ox 100% on R/A; Weight 66.22 kg; hb Height 5 ft. 6 in. ; Pain 0/10; 15:00 BP 139 / 70; Pulse 69; Resp 18; Pulse Ox 97% on R/A; db 17:30 BP 156 / 78; Pulse 82; Resp 22; Pulse Ox 98% on R/A; db 18:00 BP 143 / 76; Pulse 69; Resp 14; Temp 97.9; Pulse Ox 99% ; db 19:00 BP 145 / 78; Pulse 70; Resp 15 S; Pulse Ox 98% on R/A; jw7 20:30 BP 148 / 75; Pulse 69; Resp 15 S; Pulse Ox 99% on R/A; jw7 14:50 Body Mass Index 23.56 (66.22 kg, 167.64 cm) hb 14:50 Pain Scale: Adult hb Kelvin Coma Score: 15:00 Eye Response: spontaneous(4). Motor Response: obeys commands(6). Verbal Response: db oriented(5). Total: 15. NIH Stroke Scale Scores: 15:00 NIHSS Score: 0 db ED Course: 14:25 Patient arrived in ED. im 14:40 Arm band placed on Patient placed in an exam room, on a stretcher. ll1 14:51 Triage completed. hb 14:54 family informed doctor will be here [facility] for evaluation, currently with critical ll1 patient. Family and patient verbalized understanding. . 15:20 Brigida Calderon [facility]C [facility] sb4 15:20 Paige Wilcox MD is Attending Physician. sb4 15:21 Zoe Jordan, ALTAGRACIA is Primary Nurse. db 15:30 Inserted saline lock: 22 gauge in right antecubital area, using aseptic technique. db Blood collected. 15:[address] db 15:41 XRAY Chest (1 view) In Process Unspecified. EDMS 15:46 Ct Stroke Brain Wo Cont In Process Unspecified. EDMS 16:35 CT Head Angio In Process Unspecified. EDMS 16:35 CT Neck Angio In Process Unspecified. EDMS 17:00 Patient has correct armband on for positive identification. Placed in gown. Bed in low db position. Call light in reach. Side rails up X2. Provided Education on: ADMISSION. Client placed on continuous cardiac and pulse oximetry monitoring. NIBP monitoring applied. conveyor monitor on. Pulse ox on. NIBP on. 17:05 Lucie Thacker MD is Hospitalizing Provider. sb4 19:12 No provider procedures requiring assistance completed. Patient admitted, IV remains in db place. 21:04 Cele Champion RN is Primary Nurse. jw7 Administered Medications: 16:02 Drug: NS 0.9% IV 1000 ml IV at 1 bolus Per protocol; 1000 mL bolus Route: IV; Rate: 1 kc6 bolus; Site: right antecubital; 18:20 Follow up: Response: No adverse reaction; IV Status: Completed infusion; IV Intake: db 1000ml 16:03 Drug: Ondansetron IVP 4 mg IVP once; over 2 minutes Route: IVP; Site: right antecubital;kc6 18:20 Follow up: Response: No adverse reaction db Medication: 17:00 VIS not applicable for this client. db Intake: 18:20 IV: 1000ml; Total: 1000ml. db Outcome: 17:06 Decision to Hospitalize by Provider. sb4 19:12 Admitted to ER Hold. Please see [facility] for further documentation. db 19:12 Condition: stable 19:12 Instructed on the need for admit, 21:07 Patient left the ED. jw7 NIH Stroke Scale - NIH Stroke Score Date: 03/19/2024 Time: 15:00 Total Score = 0 10. Dysarthria (speech clarity - read or repeat words) - 0(Normal) 11. Extinction and Inattention (visual/tactile/auditory/spatial/personal) - 0(No abnormality) 1a. Level of Consciousness (LOC) - 0(Alert) 1b. Level of Consciousness (LOC) (Month \T\ Age) - 0(Both) 1c. LOC Commands (Open \T\ Closes Eyes/Casing Builder) - 0(Both) 2. Best Gaze (Lateral Gaze Paresis) - 0(Normal) 3. Visual Field Loss - 0(No visual loss) 4. Facial Palsy - 0(Normal) 5a. Left Arm: Motor (10-second hold) - 0(No drift) 5b. Right Arm: Motor (10-second hold) - 0(No drift) 6a. Left Leg: Motor (5-second hold - always test supine) - 0(No drift) 6b. Right Leg: Motor (5-second hold - always test supine) - 0(No drift) 7. Limb Ataxia (finger/nose \T\ heel/cabrera - test with eyes open) - 0(Absent) 8. Sensory Loss (pinprick arms/legs/face) - 0(Normal) 9. Best Language: Aphasia (description/naming/reading) - 0(No aphasia) Initials: db Signatures: Dispatcher [employer] EDFrancine Carter RN RN Hammad Weber RN RN ll1 Cele Champion RN RN jw7 Rylee Dutton RN RN kc6 Zoe Jordan RN RN Brigida Morfin, PA-Sindy PA-Sindy ramirez4 Caro Rosas
--- NOTE | 2024-03-19 17:06 | EDPHYS ---
Physician Documentation [facility] Name: Richard Condon Age: 83 yrs Sex: Male : 1940 Arrival Date: 03/19/2024 Time: 14:22 Bed 18 Private MD: ED Physician Paige Wilcox HPI: 03/19 15:40 This 83 yrs old Male presents to ER via Ambulatory with complaints of sb4 Dizziness, Vomiting. 15:40 patient states he woke up this morning with severe dizziness, the sensation of the room sb4 spinning when his eyes are opening. he also endorses intractable nausea and vomiting. he states that he has had issues with dizziness previously secondary to his isosorbide, but this is worse. he denies any chest pain, shortness of breath, blurry vision, headache. Historical: - Allergies: 14:51 No Known Allergies; hb - Home Meds: 14:51 metoprolol tartrate 25 mg oral tablet daily [Active]; olmesartan 20 mg oral tablet hb daily [Active]; spironolactone 25 mg oral tablet daily [Active]; pravastatin 40 mg oral tablet daily [Active]; tamsulosin 0.4 mg oral capsule daily [Active]; isosorbide mononitrate 30 mg Oral Tablet, Extended Release 24 hr daily [Active]; omeprazole 20 mg Oral capsule,delayed release (e.c.) 2 times per day [Active]; glipizide 5 mg Oral Tablet, Extended Release 24 hr daily [Active]; aspirin 81 mg Oral tablet,chewable daily [Active]; - PMHx: 14:51 diabetes mellitus; Hypertensive disorder; hb - Immunization history:: Adult Immunizations up to date. - Infectious Disease History:: Denies. - Social history:: Smoking status: Patient denies any tobacco usage or history of. ROS: 18:24 Constitutional: Negative for fever, chills, and weight loss, sb4 18:24 Abdomen/GI: Positive for nausea and vomiting, 18:24 Neuro: Positive for dizziness, 18:24 All other systems are negative, Exam: 18:24 Cardiovascular: Regular rate and rhythm with a normal S1 and S2. Respiratory: Lungs sb4 have equal breath sounds bilaterally, clear to auscultation and percussion. No rales, rhonchi or wheezes noted. No increased work of breathing, no retractions or nasal flaring. Abdomen/GI: Soft, non-tender, no distension. 18:24 Constitutional: The patient appears in no acute distress, alert, awake, 18:24 Eyes: Pupils: constricted, left eye, Extraocular movements: intact throughout, 18:24 Neuro: Orientation: is normal, appropriate for stated age, Mentation: is normal, able to follow commands, Memory: is normal, appropriate for stated age, Cranial nerves: extraocular movements are intact, Facial palsy and sensory deficits are absent. no gross hearing deficit,. Nystagmus is absent. Motor: moves all fours, Sensation: is normal, no obvious gross deficits, seizure activity, is not displayed by the patient, Abnormal movements: there are no abnormal movements, Vital Signs: 14:50 BP 161 / 66; Pulse 72; Resp 14; Temp 97.9(TE); Pulse Ox 100% on R/A; Weight 66.22 kg; hb Height 5 ft. 6 in. ; Pain 0/10; 15:00 BP 139 / 70; Pulse 69; Resp 18; Pulse Ox 97% on R/A; db 17:30 BP 156 / 78; Pulse 82; Resp 22; Pulse Ox 98% on R/A; db 18:00 BP 143 / 76; Pulse 69; Resp 14; Temp 97.9; Pulse Ox 99% ; db 19:00 BP 145 / 78; Pulse 70; Resp 15 S; Pulse Ox 98% on R/A; jw7 20:30 BP 148 / 75; Pulse 69; Resp 15 S; Pulse Ox 99% on R/A; jw7 14:50 Body Mass Index 23.56 (66.22 kg, 167.64 cm) hb 14:50 Pain Scale: Adult hb NIH Stroke Scale Scores: 15:00 NIHSS Score: 0 db [place] Coma Score: 15:00 Eye Response: spontaneous(4). Motor Response: obeys commands(6). Verbal Response: db oriented(5). Total: 15. MDM: 15:20 Patient medically screened. sb4 18:24 Data reviewed: vital signs, nurses notes, lab test result(s), EKG, radiologic studies, sb4 and as a result, I will admit patient. Consideration of Admission/Observation Patient was admitted/placed on observation. Counseling: I had a detailed discussion with the patient and/or guardian regarding the historical points, exam findings, and any diagnostic results supporting the discharge/admit diagnosis, lab results, radiology results, the need for further work-up and treatment in the hospital. 03/19 15:16 Order name: Basic Metabolic Panel; Complete Time: 16:05 eb 03/19 15:16 Order name: CBC with Diff eb 03/19 15:16 Order name: LFT's; Complete Time: 16:05 eb 03/19 15:16 Order name: Troponin HS; Complete Time: 16:05 eb 03/19 16:00 Order name: Protime (+INR); Complete Time: 16:05 EDMS 03/19 16:00 Order name: PTT, Activated Partial Thromb; Complete Time: 16:05 EDMS 03/19 17:24 Order name: CBC with Automated Diff EDMS 03/19 17:24 Order name: CBC with Automated Diff EDMS 03/19 17:24 Order name: Comprehensive Metabolic Panel EDMS 03/19 17:24 Order name: Comprehensive Metabolic Panel EDMS 03/19 17:24 Order name: Lipid Profile EDMS 03/19 17:24 Order name: Lipid Profile EDMS 03/19 17:24 Order name: Magnesium EDMS 03/19 17:24 Order name: Magnesium EDMS 03/19 17:24 Order name: Troponin High Sensitivity EDMS 03/19 17:24 Order name: Troponin High Sensitivity EDMS 03/19 17:24 Order name: Troponin High Sensitivity EDMS 03/19 17:24 Order name: Troponin High Sensitivity EDMS 03/19 20:09 Order name: CBC Smear Scan EDMS 03/19 15:16 Order name: XRAY Chest (1 view); Complete Time: 16:05 eb 03/19 15:46 Order name: Ct Stroke Brain Wo Cont; Complete Time: 16:05 EDMS 03/19 16:07 Order name: CT Head Angio; Complete Time: 16:51 sb4 03/19 16:07 Order name: CT Neck Angio; Complete Time: 16:51 sb4 03/19 17:24 Order name: Echo with Doppler EDMS 03/19 17:24 Order name: Brain Wo Cont EDMS 03/19 17:24 Order name: Physical Therapy Consult EDMS 03/19 17:24 Order name: Speech Therapy Consult EDMS 03/19 15:16 Order name: Cardiac monitoring; Complete Time: 15:35 eb 03/19 15:16 Order name: EKG - Nurse/Tech; Complete Time: 15:35 eb 03/19 15:16 Order name: IV Saline Lock; Complete Time: 15:35 eb 03/19 15:16 Order name: Labs collected and sent; Complete Time: 15:35 eb 03/19 15:16 Order name: O2 Per Protocol; Complete Time: 15:35 eb 03/19 15:16 Order name: O2 Sat Monitoring; Complete Time: 15:35 eb EC:39 Rate is 70 beats/min. Rhythm is regular, Normal Sinus Rhythm. CA interval is normal at sb4 180 msec. QRS interval is normal at 88 msec. QT interval is normal at 428 msec. No Q waves. T waves are Normal. No ST changes noted. Clinical impression: Normal ECG. Interpreted by me. Reviewed by me. Administered Medications: 16:02 Drug: NS 0.9% IV 1000 ml IV at 1 bolus Per protocol; 1000 mL bolus Route: IV; Rate: 1 kc6 bolus; Site: right antecubital; 18:20 Follow up: Response: No adverse reaction; IV Status: Completed infusion; IV Intake: db 1000ml 16:03 Drug: Ondansetron IVP 4 mg IVP once; over 2 minutes Route: IVP; Site: right antecubital;kc6 18:20 Follow up: Response: No adverse reaction db Disposition Summary: 03/19/24 17:06 Hospitalization Ordered Notes: Hospitalization Status: Observation sb4 Provider: Lucie Thacker Location: Telemetry/MedSur (observation) sb4 Condition: Fair sb4 Problem: new sb4 Symptoms: are unchanged sb4 Bed/Room Type: Standard sb4 Room Assignment: 212(03/19/24 18:04) eb Diagnosis - Dizziness and giddiness sb4 - CVA rule out sb4 Forms: - Medication Reconciliation Form sb4 - SBAR form sb4 - Leadership Thank You Letter sb4 NIH Stroke Scale - NIH Stroke Score Date: 03/19/2024 Time: 15:00 Total Score = 0 10. Dysarthria (speech clarity - read or repeat words) - 0(Normal) 11. Extinction and Inattention (visual/tactile/auditory/spatial/personal) - 0(No abnormality) 1a. Level of Consciousness (LOC) - 0(Alert) 1b. Level of Consciousness (LOC) (Month \T\ Age) - 0(Both) 1c. LOC Commands (Open \T\ Closes Eyes/Pipe Bowls Paint Trimmer) - 0(Both) 2. Best Gaze (Lateral Gaze Paresis) - 0(Normal) 3. Visual Field Loss - 0(No visual loss) 4. Facial Palsy - 0(Normal) 5a. Left Arm: Motor (10-second hold) - 0(No drift) 5b. Right Arm: Motor (10-second hold) - 0(No drift) 6a. Left Leg: Motor (5-second hold - always test supine) - 0(No drift) 6b. Right Leg: Motor (5-second hold - always test supine) - 0(No drift) 7. Limb Ataxia (finger/nose \T\ heel/cabrera - test with eyes open) - 0(Absent) 8. Sensory Loss (pinprick arms/legs/face) - 0(Normal) 9. Best Language: Aphasia (description/naming/reading) - 0(No aphasia) Initials: db Signatures: Dispatcher [employer] EDMS Francine Eden, RN RN Lindsey Pelletier Kaitlyn, RN RN kc6 Brigida Calderon PA-C PATika sb4 Zoe Jordan RN db Corrections: (The following items were deleted from the chart) 15:46 15:27 Head Brain Wo [id number] ordered. EDMS EDMS 18:04 17:06 sb4 eb 18:25 18:24 Constitutional: Negative for fever, chills, and weight loss, ENT: sb4 Negative for injury, pain, and discharge, sb4
[2024-03-19] MEDS ORDERED: ONDANSETRON 4 MG/2 ML VIAL IV PRN (17:16)
[2024-03-19] MEDS ORDERED: ACETAMINOPHEN 500 MG TAB PO PRN (17:16)
--- NOTE | 2024-03-19 17:23 | P.HP ---
Certification for Inpatient Patient admitted to: Observation With expected LOS: <2 Midnights Patient will require the following post-hospital care: None Practitioner: I am a practitioner with admitting privileges, knowledge of patient current condition, hospital course, and medical plan of care. Services: Services provided to patient in accordance with Admission requirements found in Title 42 Section 412.3 of the Code of Federal Regulations Patient History Date of Service: 03/19/24 Reason for admission: Intractable nausea and vomiting with vertigo History of Present Illness: Patient an 83-year-old gentleman who presents to the emergency room with intractable nausea and vomiting. Patient is also having vertigo. He is having difficulty ambulating. Patient came to the emergency room for further evaluation. In the emergency room patient had CT imaging and this was unremarkable. Patient symptoms started this morning when he woke up. He pres ents to the ER afternoon. Patient was out of the time of tPA. Concern for posterior circulation stroke. Patient will be admitted to the hospital and will monitor his hemodynamics closely. Continue antiplatelet therapy and statin therapy. Physical therapy evaluation and MRI brain pending. Will check lipid profile as well. Stroke protocol followed. Allergies No Known Allergies Allergy (Verified 03/19/24 22:20) Home Medications: Aspirin [Aspirin EC] 81 mg PO DAILY 03/19/24 Dorzolamide/Timolol/Pf [Dorzolamide-Timolol 2%-0.5%] 1 drop EACH EYE BID 03/19/24 Isosorbide Mononitrate [Isosorbide Mononitrate ER] 30 mg PO BEDTIME 03/19/24 Latanoprost Ophth [Xalatan 0.005%*] 1 drop EACH EYE DAILY 03/19/24 Metoprolol Tartrate [Lopressor] 25 mg PO DAILY 03/19/24 Olmesartan Medoxomil [Benicar] 20 mg PO BEDTIME 03/19/24 Omeprazole 20 mg PO DAILY 03/19/24 Pravastatin Sodium 1 tab PO BEDTIME 03/19/24 Spironolactone [Aldactone] 12.5 mg PO DIRECTED 03/19/24 Tamsulosin HCl 1 cap PO DAILY 03/19/24 glipiZIDE [Glipizide] 5 mg PO DAILY 03/19/24 - Past Medical/Surgical History -: Hypertension -: Type II diabetes -: Coronary artery disease -: Hyperlipidemia -: GERD -: Corneal injury -: Cataract surgery - Family History Father Medical History: Heart disease, Hypertension Brother Medical History: Stroke Sister Medical History: Diabetes, Cancer - Social History Smoking Status: Never smoker Alcohol use: No CD- Drugs: No Review of Systems 10-point ROS is otherwise unremarkable Physical Examination - Vital Signs Temperature: 98 F - Physical Exam General: Alert, In no apparent distress, Oriented x3 HEENT: Atraumatic, PERRLA, Mucous membr. moist/pink, EOMI, Sclerae nonicteric Neck: Supple, 2+ carotid pulse no bruit, No LAD, Without JVD or thyroid abn ormality Respiratory: Clear to auscultation bilaterally, Normal air movement Cardiovascular: Regular rate/rhythm, Normal S1 S2, No murmurs Gastrointestinal: Normal bowel sounds, Soft and benign, Non-distended, No tenderness Musculoskeletal: No clubbing, No swelling, No tenderness Integumentary: No rashes Neurological: Normal gait, Normal speech, Normal strength at 5/5 x4 extr, Normal tone, Sensation intact, Cranial nerves 3-12 intact, Normal affect Lymphatics: No axilla or inguinal lymphadenopathy - Studies Laboratory Data (last 24 hrs) 03/19/24 03/19/24 03/19/24 15:25 15:25 15:25 WBC 6.80 Hgb 13.1 L Hct 38.5 L Plt Count 167 PT 11.0 INR 1.00 APTT 28.6 Sodium 137 Potassium 3.9 BUN 19 H Creatinine 1.24 Glucose 183 H Total Bilirubin 0.8 AST 14 L ALT 23 Alkaline Phosphatase 33 L Assessment & Plan - Problems (Diagnosis) (1) Intractable nausea and vomiting Current Visit: Yes Status: Acute (2) Vertigo Current Visit: Yes Status: Acute (3) Type 2 diabetes mellitus Current Visit: Yes Status: Acute (4) HTN (hypertension) Current Visit: Yes Status: Acute (5) CAD (coronary artery disease) Current Visit: Yes Status: Acute - Plan 1. MRI of the brain 2. Antiplatelet and statin therapy 3. Lipid profile 4. Physical therapy and speech therapy consultation 5. DVT prophylaxis 6. Neurochecks every 4 hours 7. Reassess stroke scale 8. GI and DVT prophylaxis Discharge Plan: Home Plan to discharge in: 24 Hours - Advance Directives Does patient have a Living Will: No Does patient have a Durable POA for Healthcare: No - Code Status/Comfort Care Code Status Assessed: Yes Code Status: Full Code Critical Care: No Time Spent Managing PTS Care (In Minutes): 45
[2024-03-19 18:58] VITALS: BMI 23.6
[2024-03-19 20:09] LABS: Blood Morphology Comment NOT SEEN (NOT SEEN); Platelet Estimate ADEQ; White Blood Cell Scan OK (OK)
[2024-03-19] MEDS: ATORVASTATIN 20 MG TAB PO SCH (21:00)
[2024-03-19] MEDS: MECLIZINE HCL 12.5 MG TAB PO SCH (21:00)
[2024-03-19] MEDS: NA CHLORIDE 0.9% 1,000 ML IV SCH (22:31)
[2024-03-20 04:59] VITALS: BP 140/63
[2024-03-20 05:17] LABS: Absolute Eosinophils 0.1 K/uL (0-0.5); Absolute Lymphocytes (CBC) 1.5 K/uL (0.7-4.9); Absolute Monocytes 0.6 K/uL (0.1-1.3); Absolute Neutrophil 4.2 K/uL (1.8-8.0); Basophils % 0.4 % (0-1.3); Eosinophils % 2.2 % (0-4.4); Hemoglobin 11.5 g/dL (13.6-17.9); Lymphocytes % 22.9 % (15.3-44.8); MCH 30.2 pg (27.0-35.0); MCHC 34.8 g/dL (32.0-36.0); MCV 86.8 fL (80-100); Monocytes % 9.3 % (3.3-12.3); Neutrophils % 65.2 % (41.7-73.7); Nucleated Red Blood Cells % 0.1 % (0-0); Platelets 171 thou/uL (152-406); Red Cell Distribution Width 13.6 % (12.1-15.2)
[2024-03-20 05:31] VITALS: O2SAT 98
[2024-03-20 05:35] LABS: ALT/SGPT 18 U/L (16-61); Albumin 2.8 g/dL (3.4-5.0); Alkaline Phosphatase 25 U/L (45-117); Anion Gap 6.8 mEq/L (5.0-15.0); BUN Blood Urea Nitrogen 15 mg/dL (7-18); Bicarbonate 26 mEq/L (21-32); Bilirubin Total 0.6 mg/dL (0.2-1.0); Globulin 2.7 g/dL (2.3-3.5); Glomerular Filtration Rate 65 ml/min (=/>90); Glucose Level 107 mg/dL (74-106); HDL Cholesterol 40 mg/dL (40-60); LDL Cholesterol, Calculated 84 mg/dL (<130); LDL Cholesterol,Calc NonReport 84; Magnesium 2.2 mg/dL (1.6-2.4); Phosphorus 2.8 mg/dL (2.5-4.9); Potassium 3.8 mEq/L (3.5-5.1); Protein, Total 5.5 g/dL (6.4-8.2); Sodium Level 143 mEq/L (136-145); Troponin High Sensitivity 15.6 pg/mL (<58.9)
[2024-03-20 05:36] LABS: AST/SGOT < 10 U/L (15-37)
[2024-03-20] MEDS: POTASSIUM CL SA 10 MEQ TAB PO ONE (05:57)
[2024-03-20 08:16] VITALS: TEMP 98
--- NOTE | 2024-03-20 08:19 | P.DS ---
Discharge Date: 03/20/24 Disposition: ROUTINE DISCHARGE Discharge Condition: GOOD Reason for Admission: Intractable nausea and vomiting with vertigo - Problems (1) Intractable nausea and vomiting Current Visit: Yes Status: Acute (2) Vertigo Current Visit: Yes Status: Acute (3) Type 2 diabetes mellitus Current Visit: Yes Status: Acute (4) HTN (hypertension) Current Visit: Yes Status: Acute (5) CAD (coronary artery disease) Current Visit: Yes Status: Acute Brief History of Present Illness: Patient an 83-year-old gentleman who presents to the emergency room with intractable nausea and vomiting. Patient is also having vertigo. He is having difficulty ambulating. Patient came to the emergency room for further evaluation. In the emergency room patient had CT imaging and this was unremarkable. Patient symptoms started this morning when he woke up. He presents to the ER afternoon. Patient was out of the time of tPA. Concern for posterior circulation stroke. Patient will be admitted to the hospital and will monitor his hemodynamics closely. Continue antiplatelet therapy and statin the rapy. Physical therapy evaluation and MRI brain pending. Will check lipid profile as well. Stroke protocol followed. Hospital Course: During hospital stay. Patient clinical symptoms have resolved. No longer having vertigo. Patient is wanting to go home. I encouraged him to stay till after MRI is completed. If MRI is negative and no worrisome findings then we should be able to discharge him home with outpatient follow-up with PCP for his vertigo. Will give him Antivert as needed. He is on antiplatelet therapy and statin therapy and his blood pressure is stable. Increase his antiplatelet regimen and double his aspirin from 81 mg to 162 mg daily. Discharge home later today. Vital Signs/Physical Exam: Temp Pulse Resp BP Pulse Ox 98 F 58 18 140/63 98 03/20/24 08:13 03/20/24 04:00 03/20/24 04:00 03/20/24 04:00 03/20/24 04:00 General: Alert, In no apparent distress, Oriented x3 Laboratory Data at Discharge: WBC 6.40 thou/uL (4.3-10.9) 03/20/24 04:53 Hgb 11.5 g/dL (13.6-17.9) L D 03/20/24 04:53 Hct 33.0 % (39.6-49.0) L 03/20/24 04:53 Plt Count 171 thou/uL (152-406) 03/20/24 04:53 PT 11.0 SECONDS (9.5-12.5) 03/19/24 15:25 INR 1.00 03/19/24 15:25 APTT 28.6 SECONDS (24.3-36.9) 03/19/24 15:25 Sodium 143 mEq/L (136-145) D 03/20/24 04:53 Potassium 3.8 mEq/L (3.5-5.1) 03/20/24 04:53 BUN 15 mg/dL (7-18) 03/20/24 04:53 Creatinine 1.14 mg/dL (0.70-1.30) 03/20/24 04:53 Glucose 107 mg/dL (74-106) H 03/20/24 04:53 Phosphorus 2.8 mg/dL (2.5-4.9) 03/20/24 04:53 Magnesium 2.2 mg/dL (1.6-2.4) 03/20/24 04:53 Total Bilirubin 0.6 mg/dL (0.2-1.0) 03/20/24 04:53 AST < 10 U/L (15-37) L 03/20/24 04:53 ALT 18 U/L (16-61) 03/20/24 04:53 Alkaline Phosphatase 25 U/L (45-117) L D 03/20/24 04:53 Triglycerides 176 mg/dL (<150) H 03/20/24 04:53 Cholesterol 159 mg/dL (<200) 03/20/24 04:53 HDL Cholesterol 40 mg/dL (40-60) 03/20/24 04:53 Cholesterol/HDL Ratio 3.98 03/20/24 04:53 Home Medications: Aspirin [Aspirin EC] 81 mg PO DAILY 03/19/24 Dorzolamide/Timolol/Pf [Dorzolamide-Timolol 2%-0.5%] 1 drop EACH EYE BID 12/11 Isosorbide Mononitrate [Isosorbide Mononitrate ER] 30 mg PO BEDTIME 03/19/24 Latanoprost Ophth [Xalatan 0.005%*] 1 drop EACH EYE DAILY 03/19/24 Metoprolol Tartrate [Lopressor*] 25 mg PO DAILY 03/19/24 Olmesartan Medoxomil [Benicar] 20 mg PO BEDTIME 03/19/24 Omeprazole 20 mg PO DAILY 03/19/24 Pravastatin Sodium 1 tab PO BEDTIME 03/19/24 Spironolactone [Aldactone*] 12.5 mg PO DIRECTED 03/19/24 Tamsulosin HCl 1 cap PO DAILY 03/19/24 glipiZIDE [Glipizide] 5 mg PO DAILY 03/19/24 Meclizine HCl 25 mg PO TID PRN #30 tab 03/20/24 New Medications: Meclizine HCl 25 mg PO TID PRN #30 tab PRN Reason: vertigo Physician Discharge Instructions: -DC IV and DC home -Follow-up with PCP in 1 to 2 weeks -Follow-up with Neurology in 1 to 2 weeks -Please call Dr. Thacker at [phone] if any questions regarding hospital stay -Please call nursing station at [phone] if any nursing or medication questions -Return to the emergency room if symptoms worsen Diet: AHA Activity: Fall precautions Followup: Dorothea Steen MD [Primary Care Provider] - Time spent managing pt's care (in minutes): 35
--- NOTE | 2024-03-20 08:52 | RAD REPORT ---
EXAM DESCRIPTION: MRI - Brain Wo Cont - 03/20/2024 8:39 am CLINICAL HISTORY: Acute CVA Headache, drowsiness, CVA COMPARISON: Head angio dated 03/19/2024; Ct Stroke Brain Wo Cont dated 03/19/2024 TECHNIQUE: Multi-sequence, multiplanar MR imaging of the brain was performed without contrast. FINDINGS: No intracranial hemorrhage, hydrocephalus or extra-axial fluid collections.Mild brain atro phy with minimal periventricular and deep white matter chronic microvascular ischemic changes. No ramos ma or shift of midline structures. No findings to suspect brain mass. DWI is negative for acute CVA. Midline structures are normally formed. Mastoid air cells and paranasal sinuses are clear. IMPRESSION: Negative for acute CVA or other acute intracranial process.
[2024-03-20] MEDS: SPIRONOLACTONE 25 MG TABLET PO SCH (08:58)
[2024-03-20] MEDS: PANTOPRAZOLE 40MG TABLET PO SCH (08:58)
[2024-03-20] MEDS: MECLIZINE HCL 12.5 MG TAB PO SCH (08:59)
[2024-03-20] MEDS: glipiZIDE 5 MG TAB PO SCH (09:00)
[2024-03-20] MEDS: DORZOLAMIDE OPTH SCH (09:00)
[2024-03-20] MEDS: ASPIRIN EC 81 MG TAB PO SCH (09:00)
[2024-03-20] MEDS: DROPERETTE OPTH SCH (09:00)
[2024-03-20] MEDS: TAMSULOSIN 0.4 MG SR CAP PO SCH (09:00)
[2024-03-20] MEDS ORDERED: ASPIRIN EC 81 MG TAB PO SCH (09:00)
[2024-03-20] MEDS: TIMOLOL OPTH SCH (09:00)
[2024-03-20] MEDS: ENOXAPARIN 40 MG/0.4 ML SQ SCH (09:01)
[2024-03-20] MEDS: METOPROLOL TAR 25 MG TAB PO SCH (09:11)
--- NOTE | 2024-03-20 13:05 | ECHO ---
HEIGHT: 5 ft 6 in WEIGHT: 145 lb 15.842 oz DATE OF STUDY: 03/20/[address]: Lucie Thacker MD 2-DIMENSIONAL: YES M.MODE: YES DOPPLER: YES COLOR FLOW: YES TDS: PORTABLE: YES DEFINITY: BUBBLE STUDY: DIAGNOSIS: DIZZINESS CARDIAC HISTORY: CATHERIZATION: SURGERY: PROSTHETIC VALVE: PACEMAKER: MEASUREMENTS (cm) DIASTOLIC (NORMALS) SYSTOLIC (NORMALS) IVSd 0.8 (0.6-1.2) LA Diam 2.8 (1.9-4.0) LVEF 60-65% LVIDd 4.0 (3.5-5.7) LVIDs 2.5 (2.0-3.5) %FS 38% LVPWd 0.8 (0.6-1.2) Ao Diam 2.9 (2.0-3.7) 2 DIMENSIONAL ASSESSMENT: RIGHT ATRIUM: NORMAL LEFT ATRIUM: NORMAL RIGHT VENTRICLE: NORMAL LEFT VENTRICLE: NORMAL TRICUSPID VALVE: TRACE TRICUSPID REGURGITATION MITRAL VALVE: TRACE MITRAL REGURGITATION PULMONIC VALVE: TRACE PULMONIC INSUFFICIENCY AORTIC VALVE: TRACE AORTIC INSUFFICIENCY PERICARDIAL EFFUSION: NONE AORTIC ROOT: NORMAL LEFT VENTRICULAR WALL MOTION: NORMAL DOPPLER/COLOR FLOW: NORMAL COMMENTS: 1. NORMAL LEFT VENTRICULAR SYSTOLIC FUNCTION, EJECTION FRACTION 60-65%, NORMAL WALL MOTION 2. NORMAL DIASTOLIC FUNCTION TECHNOLOGIST: EDU CARPIO
--- NOTE | 2024-03-20 14:07 | EKG ---
Test Date: 2024-03-19 Test Time: 15:28:57 [employer]: JENSEN MEASUREMENT RESULTS: Intervals: Rate: 70 [place]: 180 QRSD: 88 QT: 428 QTc: 462 [place]: P: 35 [place]: 180 QRS: 33 T: 47 INTERPRETIVE STATEMENTS: Normal sinus rhythm Normal ECG Compared to ECG 09/03/2023 19:12:42 Sinus bradycardia no longer present ST (T wave) deviation no longer present Electronically Signed On 03-20-24 14:04:58 CDT by Mark Vega
[2024-03-20] MEDS ORDERED: ISOSORBIDE MONO SR 30 MG TAB PO SCH (21:00)
[2024-03-20] MEDS ORDERED: VALSARTAN 80 MG TAB PO SCH (21:00)
[2024-03-20] MEDS ORDERED: ATORVASTATIN 10 MG TAB PO SCH (21:00)
== END 2024-03-20 12:06 | disposition home or self-care (01) ==
LOC: ER 14:22 → ERHOLD 17:16 → 2ND 18:18
PROVIDERS: ADMIT Hospitalist; ATTEND Hospitalist
DX: R42 Dizziness and giddiness (principal); R11.2 Nausea with vomiting, unspecified; R19.7 Diarrhea, unspecified; E11.9 Type 2 diabetes mellitus without complications; I10 Essential (primary) hypertension; I25.10 Atherosclerotic heart disease of native coronary artery without angina pectoris; Z79.82 Long term (current) use of aspirin
CPT/HCPCS: 96361; 93005; 93306; 85025 ×2; 80048; 36415; 83735; 84100; 85610; 80061; 80076; 85730; 84484 ×2; 80053; 70496; 70498; 70450; 71045; 70551; 97112; 97116; 97161; 97530; 96374; 99285; Q9967; J8597 ×2; J2405; J7030 ×2; G0378; J1650